=== PATIENT | female | born 1970 | race Native Hawaiian/Other Pacific Islander ===

== ENCOUNTER 2021-04-29 15:32 | Emergency (ER) | payer OTHER ==
[~2021-04-29] VITALS: Ht 157.5 cm; Wt 85.7 kg
[2021-04-29 15:38] VITALS: BP 142/81; TEMP 97
== END 2021-04-29 16:43 | disposition home or self-care (01) ==
LOC: ED 15:32
DX: F25.8 Other schizoaffective disorders (principal)
CPT/HCPCS: 99283